=== PATIENT | male | born 1975 | race Caucasian/White ===

== ENCOUNTER 2019-03-11 05:53 | Emergency (ER) | payer OTHER ==
[~2019-03-11] VITALS: Ht 175.3 cm; Wt 74.8 kg
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
--- NOTE | 2019-03-11 06:04 | NUR ---
EMT AT BEDSIDE FOR WOUND CLEANING.
[2019-03-11] MEDS ORDERED: LIDOCAINE HCL/PF 1% 30 ML SDV ONE (06:16)
[2019-03-11] MEDS ORDERED: IBUPROFEN 600 MG TABLET PO ONE ×2 (06:21→06:30)
[2019-03-11] MEDS ORDERED: LIDOCAINE HCL/PF 1% 30 ML VIAL TP ONE (06:30)
[2019-03-11] MEDS ORDERED: CEPHALEXIN MONOHYDRATE 500 MG CAPSULE PO ONE (06:30)
--- NOTE | 2019-03-11 06:55 | NUR ---
Patient discharged to [employer] Officer in stable condition. OK to book. Written and verbal after care instructions given to officer and pt. Patient verbalizes understanding of instruction. Pt ambulatory with a steady gait
[2019-03-11 06:58] VITALS: BP 132/82
== END 2019-03-11 06:59 ==
LOC: ER 05:54
DX: S01.312A Laceration without foreign body of left ear, initial encounter (principal); I10 Essential (primary) hypertension; J45.909 Unspecified asthma, uncomplicated; Y08.89XA Assault by other specified means, initial encounter; Y93.89 Activity, other specified; Y92.89 Other specified places as the place of occurrence of the external cause; Y99.8 Other external cause status
CPT/HCPCS: 12051; 99284; A6402; J3490 ×2

== ENCOUNTER 2019-03-24 11:06 | Emergency (ER) | payer OTHER ==
[~2019-03-24] VITALS: Ht 175.3 cm; Wt 73.0 kg
--- NOTE | 2019-03-24 11:06 | NUR ---
BIB [facility] FROM HOME,WORSENING ASTHMA ATTACK, ALBUTEROL HHN GIVEN ENROUTE. TO ER BED 1, HOOKED TO MONITOR, CHANGED TO GOWN, PROVIDED W WARM BLANKET, AWAITING MD CRAWFORD.
--- NOTE | 2019-03-24 11:14 | NUR ---
DR NAIDU AT BEDSIDE
[2019-03-24] MEDS ORDERED: IPRATROPIUM NEB FS 0.5 MG/2.5 ML AMPUL.NEB NEB ONE (11:30)
[2019-03-24] MEDS ORDERED: ALBUTEROL FS 2.5 MG/3 ML VIAL.NEB NEB ONE (11:30)
[2019-03-24] MEDS ORDERED: predniSONE 20 MG TABLET PO ONE (11:30)
[2019-03-24] MEDS ORDERED: predniSONE 20 MG TABLET ONE (11:31)
[2019-03-24] MEDS ORDERED: ALBUTEROL FS 2.5 MG/3 ML VIAL.NEB ONE (11:36)
[2019-03-24] MEDS ORDERED: IPRATROPIUM NEB FS 0.5 MG/2.5 ML AMPUL.NEB ONE (11:36)
--- NOTE | 2019-03-24 11:38 | NUR ---
RT AT BEDSIDE, PT STARTED BREATHING TX
[2019-03-24 12:25] VITALS: BP 119/65
== END 2019-03-24 12:51 | disposition home or self-care (01) ==
LOC: ER 11:06
DX: J45.901 Unspecified asthma with (acute) exacerbation (principal); Z98.890 Other specified postprocedural states
CPT/HCPCS: 71045; 94640; 99283; J7512

== ENCOUNTER 2024-09-17 13:51 | Inpatient (IN) | payer OTHER ==
[~2024-09-17] VITALS: Ht 175.3 cm; Wt 75.3 kg
[2024-09-17 14:22] LABS: BASOPHILS % (AUTO) 0.5 % (0.0-2.0); EOSINOPHILS # (AUTO) 0.2 K/uL (0.0-0.7); EOSINOPHILS % (AUTO) 3.2 % (0.0-6.0); HEMATOCRIT 38 % (39-51); HEMOGLOBIN 13.3 g/dL (13.5-17.5); LYMPHOCYTES # (AUTO) 2.6 K/uL (0.8-4.8); LYMPHOCYTES % (AUTO) 39.9 % (20.0-44.0); MEAN CORPUSCULAR HEMOGLOBIN 31 PG (26.0-33.0); MEAN CORPUSCULAR HGB CONC 35 g/dl (31.0-36.0); MEAN CORPUSCULAR VOLUME 91 fL (80-96); MONOCYTES # (AUTO) 0.6 K/uL (0.1-1.30); MONOCYTES % (AUTO) 8.4 % (2.0-12.0); NEUTROPHILS # (AUTO) 3.2 K/uL (1.8-8.9); PLATELET COUNT (AUTO) 247 K/uL (150-450); RED BLOOD CELL COUNT(AUTO) 4.23 MIL/uL (4.5-6.0); RED CELL DISTRIBUTION WIDTH 12.9 % (11.5-15.0); WHITE BLOOD COUNT (AUTO) 6.6 K/uL (4.3-11.0)
[2024-09-17 14:41] LABS: CALCIUM, SERUM 8.5 mg/dL (8.5-10.1); CARBON DIOXIDE 23 mmol/L (21-32); CHLORIDE 110 mmol/L (98-107); GLUCOSE 89 mg/dL (74-106); SODIUM SERUM 142 mmol/L (136-145); UREA NITROGEN, BLOOD 25 mg/dL (7-18)
[2024-09-17 14:47] LABS: ALANINE AMINOTRANSFERASE 27 U/L (12-78); ALBUMIN 3.6 g/dL (3.4-5.0); ALCOHOL, BLOOD 75 mg/dL (0-10); ALKALINE PHOSPHATASE 54 U/L (46-116); ASPARTATE AMINOTRANSFERASE 20 U/L (15-37); BILIRUBIN,DIRECT 0.1 mg/dL (0.0-0.2); BILIRUBIN,TOTAL 0.5 mg/dL (0.2-1.0); TOTAL PROTEIN, SERUM 6.6 g/dL (6.4-8.2)
[2024-09-17 14:49] LABS: ACETAMINOPHEN <10 ug/ml (10-30); SALICYLATE 1.8 mg/dL (2.8-20.0)
[2024-09-17 14:49] LABS: ABG BASE EXCESS -3.9 mmol/L (-2.0-3.0); ABG OXYGEN SATURATION 95.3 % (94.0-98.0); ABG PH 7.369 (7.350-7.450); ABG PO2 85.8 mmHg (83.0-108.0); ABG TOTAL HEMOGLOBIN 13.6 G/dL (13.5-17.5); COHb 0.3 % (0.5-1.5); MetHb 0.3 % (0.0-1.5); O2Hb 94.7 % (94.0-97.0); SITE, ABG RIGHT RADIAL
[2024-09-17] MEDS ORDERED: FOMEPIZOLE IV ONE (15:00)
[2024-09-17] MEDS ORDERED: FOMEPIZOLE 1.5 G in IV D5W 100 ML IV ONE (15:00)
[2024-09-17] MEDS ORDERED: D5W IV ONE (15:00)
[2024-09-17] MEDS: D5W IV ONE (15:10)
[2024-09-17] MEDS: FOMEPIZOLE IV ONE (15:10)
[2024-09-17] MEDS ORDERED: ONDANSETRON HCL/PF 4 MG/2 ML VIAL IVP PRN (16:30)
[2024-09-17] MEDS ORDERED: ENOXAPARIN SODIUM 40 MG/0.4 ML DISP.SYRIN SQ SCH (16:30)
[2024-09-17 16:47] LABS: APPEARANCE,URINE CLEAR (CLEAR); BLOOD, URINE NEGATIVE Ery/uL (NEGATIVE); COLOR,URINE LIGHT YELLOW (YELLOW); PROTEIN,URINE NEGATIVE (NEGATIVE); UGLUCOSE NEGATIVE (NEGATIVE)
[2024-09-17 16:48] LABS: BILIRUBIN,URINE NEGATIVE (NEGATIVE); KETONES,URINE TRACE mg/dL (NEGATIVE); LEUKOCYTE ESTERASE ,URINE NEGATIVE (NEGATIVE); NITRITE, URINE NEGATIVE (NEGATIVE); UROBILINOGEN,URINE 0.2 EU/dL (0.2)
[2024-09-17 17:01] LABS: AMPHETAMINE, URINE POSITIVE (NEGATIVE); BARBITURATE, URINE NEGATIVE (NEGATIVE); BENZODIAZEPINE, URINE NEGATIVE (NEGATIVE); CANNABINOID, URINE NEGATIVE (NEGATIVE); COCCAINE, URINE NEGATIVE (NEGATIVE); OPIATE, URINE NEGATIVE (NEGATIVE); PHENCYCLIDINE SCREEN,URINE NEGATIVE (NEGATIVE)
[2024-09-17 17:09] LABS: ADD URINE CULTURE NO; BACTERIA,URINE Few /HPF (None Seen); RBC,URINE 0-2 /HPF (0-2); SQUAMOUS EPITHELIAL CELL,UR Few /HPF (None Seen); WBC,URINE 0-2 /HPF (0-3)
[2024-09-17] MEDS ORDERED: BECL10.6 INH (18:25)
[2024-09-17] MEDS ORDERED: ALBU18HF2 IH (18:25)
[2024-09-17] MEDS ORDERED: DIPH50CA37 PO (18:25)
[2024-09-17] MEDS ORDERED: RISP2TAB85 PO (18:25)
[2024-09-17] MEDS ORDERED: SERT100T12 PO (18:25)
[2024-09-17 20:04] LABS: APPEARANCE,URINE CLEAR (CLEAR); BILIRUBIN,URINE NEGATIVE (NEGATIVE); BLOOD, URINE NEGATIVE Ery/uL (NEGATIVE); COLOR,URINE YELLOW (YELLOW); KETONES,URINE TRACE mg/dL (NEGATIVE); LEUKOCYTE ESTERASE ,URINE NEGATIVE (NEGATIVE); NITRITE, URINE NEGATIVE (NEGATIVE); PROTEIN,URINE NEGATIVE (NEGATIVE); UGLUCOSE NEGATIVE (NEGATIVE); UROBILINOGEN,URINE 0.2 EU/dL (0.2)
[2024-09-17 20:11] LABS: ADD URINE CULTURE NO; BACTERIA,URINE Few /HPF (None Seen); RBC,URINE 0-2 /HPF (0-2); SQUAMOUS EPITHELIAL CELL,UR None Seen /HPF (None Seen); WBC,URINE 0-2 /HPF (0-3)
[2024-09-17] MEDS: IV NS 0.9% 1,000 ML IV PRN (20:16)
[2024-09-17] MEDS: ENOXAPARIN SODIUM 40 MG/0.4 ML DISP.SYRIN SQ SCH (20:29)
[2024-09-17 20:30] VITALS: BP 101/66; TEMP 97.8; O2SAT 97
[2024-09-17 20:40] LABS: EOSINOPHIL,URINE None Seen
[2024-09-17 21:00] VITALS: BP 104/71; O2SAT 97
[2024-09-17 22:00] VITALS: BP 107/68; O2SAT 98
[2024-09-17 23:00] VITALS: BP 96/70; O2SAT 95
[2024-09-18] VITALS (15 sets, daily range): BP systolic 89–128; BP diastolic 46–77; TEMP 97.8–98.4; O2SAT 95–99
[2024-09-18] MEDS: FOMEPIZOLE IV SCH (02:15)
[2024-09-18] MEDS: D5W IV SCH (02:15)
[2024-09-18 05:12] LABS: BASOPHILS # (AUTO) 0.1 K/uL (0.0-0.2); BASOPHILS % (AUTO) 1.3 % (0.0-2.0); EOSINOPHILS # (AUTO) 0.3 K/uL (0.0-0.7); EOSINOPHILS % (AUTO) 6.5 % (0.0-6.0); HEMATOCRIT 39 % (39-51); HEMOGLOBIN 13.5 g/dL (13.5-17.5); LYMPHOCYTES # (AUTO) 2.6 K/uL (0.8-4.8); LYMPHOCYTES % (AUTO) 49.1 % (20.0-44.0); MEAN CORPUSCULAR HEMOGLOBIN 31 PG (26.0-33.0); MEAN CORPUSCULAR HGB CONC 35 g/dl (31.0-36.0); MEAN CORPUSCULAR VOLUME 89 fL (80-96); MONOCYTES # (AUTO) 0.4 K/uL (0.1-1.30); MONOCYTES % (AUTO) 7.8 % (2.0-12.0); NEUTROPHILS # (AUTO) 1.9 K/uL (1.8-8.9); NEUTROPHILS % (AUTO) 35.3 % (43.0-81.0); PLATELET COUNT (AUTO) 225 K/uL (150-450); RED BLOOD CELL COUNT(AUTO) 4.32 MIL/uL (4.5-6.0); RED CELL DISTRIBUTION WIDTH 12.8 % (11.5-15.0); WHITE BLOOD COUNT (AUTO) 5.2 K/uL (4.3-11.0)
[2024-09-18 05:37] LABS: ALBUMIN 3.1 g/dL (3.4-5.0); BILIRUBIN,TOTAL 0.7 mg/dL (0.2-1.0); CALCIUM, SERUM 8.6 mg/dL (8.5-10.1); MAGNESIUM 2.2 mg/dL (1.8-2.4); PHOSPHORUS 3.3 mg/dL (2.5-4.9); POTASSIUM 4.5 mmol/L (3.5-5.1)
[2024-09-18] MEDS: risperiDONE 1 MG TABLET PO SCH (18:00)
[2024-09-19] VITALS (7 sets, daily range): BP systolic 101–128; BP diastolic 65–78; TEMP 97.7–98.6; O2SAT 97–98
[2024-09-19 02:31] LABS: CREATININE, URINE 58.2 MG/DL (30.0-125.0); URINE SODIUM, RANDOM 48 mmol/l (40-220)
[2024-09-19 02:48] LABS: URINE TOTAL PROTEIN < 11.9 mg/dL (0-11.9)
[2024-09-19 06:33] LABS: BASOPHILS # (AUTO) 0.1 K/uL (0.0-0.2); EOSINOPHILS # (AUTO) 0.4 K/uL (0.0-0.7); EOSINOPHILS % (AUTO) 5.3 % (0.0-6.0); HEMATOCRIT 38 % (39-51); HEMOGLOBIN 13.4 g/dL (13.5-17.5); LYMPHOCYTES # (AUTO) 2.2 K/uL (0.8-4.8); LYMPHOCYTES % (AUTO) 30.9 % (20.0-44.0); MEAN CORPUSCULAR HEMOGLOBIN 31 PG (26.0-33.0); MEAN CORPUSCULAR HGB CONC 35 g/dl (31.0-36.0); MEAN CORPUSCULAR VOLUME 89 fL (80-96); MONOCYTES # (AUTO) 0.5 K/uL (0.1-1.30); MONOCYTES % (AUTO) 7.1 % (2.0-12.0); NEUTROPHILS % (AUTO) 55.7 % (43.0-81.0); PLATELET COUNT (AUTO) 225 K/uL (150-450); RED BLOOD CELL COUNT(AUTO) 4.28 MIL/uL (4.5-6.0); RED CELL DISTRIBUTION WIDTH 12.8 % (11.5-15.0); WHITE BLOOD COUNT (AUTO) 7.2 K/uL (4.3-11.0)
[2024-09-19 07:01] LABS: BILIRUBIN,TOTAL 0.3 mg/dL (0.2-1.0); CALCIUM, SERUM 8.1 mg/dL (8.5-10.1); MAGNESIUM 2.1 mg/dL (1.8-2.4); PHOSPHORUS 3.1 mg/dL (2.5-4.9); POTASSIUM 3.7 mmol/L (3.5-5.1); TOTAL PROTEIN, SERUM 5.8 g/dL (6.4-8.2)
[2024-09-19] MEDS: ESCITALOPRAM OXALATE (10 MG) 10 MG TABLET PO SCH (08:26)
[2024-09-19] MEDS: ACETAMINOPHEN 325 MG TABLET PO PRN (15:17)
[2024-09-19] MEDS: MUPIROCIN OINT 2% 22 GM TUBE NS SCH (20:20)
[2024-09-19 22:18] LABS: ALBUMIN 3.2 g/dL (3.4-5.0); BILIRUBIN,TOTAL 0.4 mg/dL (0.2-1.0); CALCIUM, SERUM 8.4 mg/dL (8.5-10.1); POTASSIUM 4.1 mmol/L (3.5-5.1); TOTAL PROTEIN, SERUM 6.3 g/dL (6.4-8.2)
[2024-09-20] MEDS: FOMEPIZOLE IV SCH (02:07)
[2024-09-20] MEDS: D5W IV SCH (02:07)
[2024-09-20 20:00] VITALS: BP 110/69; TEMP 98.6; O2SAT 97
[2024-09-21 14:08] LABS: BASOPHILS % (AUTO) 0.5 % (0.0-2.0); EOSINOPHILS # (AUTO) 0.5 K/uL (0.0-0.7); EOSINOPHILS % (AUTO) 6.6 % (0.0-6.0); HEMATOCRIT 42 % (39-51); HEMOGLOBIN 14.6 g/dL (13.5-17.5); LYMPHOCYTES # (AUTO) 1.4 K/uL (0.8-4.8); LYMPHOCYTES % (AUTO) 18.6 % (20.0-44.0); MEAN CORPUSCULAR HEMOGLOBIN 31 PG (26.0-33.0); MEAN CORPUSCULAR HGB CONC 35 g/dl (31.0-36.0); MEAN CORPUSCULAR VOLUME 89 fL (80-96); MONOCYTES # (AUTO) 0.7 K/uL (0.1-1.30); MONOCYTES % (AUTO) 9.4 % (2.0-12.0); NEUTROPHILS % (AUTO) 64.9 % (43.0-81.0); PLATELET COUNT (AUTO) 229 K/uL (150-450); RED BLOOD CELL COUNT(AUTO) 4.68 MIL/uL (4.5-6.0); RED CELL DISTRIBUTION WIDTH 12.5 % (11.5-15.0); WHITE BLOOD COUNT (AUTO) 7.7 K/uL (4.3-11.0)
[2024-09-21 14:41] LABS: ALBUMIN 3.3 g/dL (3.4-5.0); BILIRUBIN,TOTAL 0.6 mg/dL (0.2-1.0); CALCIUM, SERUM 8.8 mg/dL (8.5-10.1); POTASSIUM 3.8 mmol/L (3.5-5.1)
[2024-09-22] MEDS ORDERED: ACET-868 PO (08:37)
[2024-09-22] MEDS ORDERED: ESCI5TAB PO (08:37)
[2024-09-22] MEDS ORDERED: RISP0.5T65 PO (08:37)
== END 2024-09-21 16:54 | DRG 817 ==
LOC: ER 14:17 → ICU 18:14 → TELE 09-18 11:53 → MED 09-19 12:38 → GPS 09-21 16:46
PROVIDERS: ADMIT Nurse Practitioner Acute Care
DX: T51.8X2A Toxic effect of other alcohols, intentional self-harm, initial encounter (principal); R45.851 Suicidal ideations; F29 Unspecified psychosis not due to a substance or known physiological condition; F33.1 Major depressive disorder, recurrent, moderate; D64.9 Anemia, unspecified; E86.9 Volume depletion, unspecified; Y92.89 Other specified places as the place of occurrence of the external cause; F20.9 Schizophrenia, unspecified; F41.1 Generalized anxiety disorder; J45.909 Unspecified asthma, uncomplicated; R45.850 Homicidal ideations; Z56.0 Unemployment, unspecified
CPT/HCPCS: 36415; 80048-TC; 80053-TC; 80076-TC; 81001; 82570-TC; 82693; 82803-TC; 83735-TC; 83935-TC; 84100-TC; 84300-TC; 85025-TC; 87081-TC; 98960; A4223; G0378; G0480; J1451; J1650; J7030; J7060

== ENCOUNTER 2024-09-21 17:04 | Inpatient (IN) | payer OTHER ==
[~2024-09-21] VITALS: Ht 175.3 cm; Wt 73.0 kg
[~2024-09-21 17:04] MED LIST: ALBU18HF2 IH; BECL10.6 INH; DIPH50CA37 PO; RISP2TAB85 PO; SERT100T12 PO
[2024-09-21] MEDS ORDERED: MAGNESIUM HYDROXIDE 30 ML UDC PO PRN (18:00)
[2024-09-21] MEDS ORDERED: TEMAZEPAM 7.5 MG CAPSULE PO PRN ×2 (18:00)
[2024-09-21] MEDS ORDERED: clonazePAM 0.5 MG TABLET PO PRN (18:00)
[2024-09-21] MEDS ORDERED: MAG HYDROX/AL HYDROX/SIMETH 30 ML UDC PO PRN (18:00)
[2024-09-21] MEDS: BLOOD SUGAR DIAGNOSTIC 1 EACH STRIP IN ONE (18:39)
[2024-09-21] MEDS: clonazePAM 0.5 MG TABLET PO PRN (18:42)
[2024-09-21] MEDS: ACETAMINOPHEN 325 MG TABLET PO PRN (18:43)
[2024-09-21] MEDS ORDERED: Medication Not On Formulary EA (Beclomethasone Dipropionate (Qvar Redihaler) 2 PUFF) INH SCH (19:00)
[2024-09-22 00:36] VITALS: BP 115/82; TEMP 98; O2SAT 98
[2024-09-22] MEDS: BUDESONIDE RESPULE INH 0.5 MG/2 ML AMPUL.NEB NEB SCH (07:05)
[2024-09-22 08:00] VITALS: BP 100/66; TEMP 98.7; O2SAT 97
[2024-09-22 08:05] LABS: ALBUMIN 3.3 g/dL (3.4-5.0); BILIRUBIN,TOTAL 0.7 mg/dL (0.2-1.0); CALCIUM, SERUM 9.1 mg/dL (8.5-10.1); CREATININE 0.9 mg/dL (0.6-1.3); POTASSIUM 3.9 mmol/L (3.5-5.1); TOTAL PROTEIN, SERUM 7.2 g/dL (6.4-8.2)
[2024-09-22 08:17] LABS: CHOLESTEROL 129 mg/dL (<200); HDL CHOLESTEROL 52 mg/dL (40-60); LDL 74 mg/dL (0-99); TRIGLYCERIDES 74 mg/dL (30-150)
[2024-09-22] MEDS ORDERED: ACET-868 PO (08:37)
[2024-09-22] MEDS ORDERED: ESCI5TAB PO (08:37)
[2024-09-22] MEDS ORDERED: RISP0.5T65 PO (08:37)
[2024-09-22 09:15] VITALS: O2SAT 98
[2024-09-22] MEDS: ALBUTEROL FS 2.5 MG/3 ML VIAL.NEB IH PRN (09:37)
[2024-09-22] MEDS ORDERED: ALBUTEROL FS 2.5 MG/3 ML VIAL.NEB NEB PRN (11:00)
[2024-09-22] MEDS: clonazePAM 1 MG TABLET PO STA (11:29)
[2024-09-22] MEDS: risperiDONE 1 MG TABLET PO SCH (14:37)
[2024-09-22 16:00] VITALS: BP 100/84; TEMP 98.7; O2SAT 96
[2024-09-22] MEDS: clonazePAM 1 MG TABLET PO PRN (19:52)
[2024-09-22 20:00] VITALS: BP 106/69; TEMP 98.4; O2SAT 99
[2024-09-23 08:00] VITALS: BP 100/61; TEMP 98.6; O2SAT 100
[2024-09-23] MEDS: ESCITALOPRAM OXALATE (10 MG) 10 MG TABLET PO SCH (08:09)
[2024-09-23 14:22] VITALS: O2SAT 94
[2024-09-23 14:37] VITALS: O2SAT 99
[2024-09-23 16:18] VITALS: BP_SYST 100; BP_SYST 113; BP_DIAS 61; BP_DIAS 72; TEMP 98.2; O2SAT 95
[2024-09-23 20:00] VITALS: BP 115/66; TEMP 98.4; O2SAT 95
[2024-09-23] MEDS: clonazePAM 1 MG TABLET PO PRN (23:39)
[2024-09-24 07:51] VITALS: O2SAT 95
[2024-09-24 07:59] VITALS: O2SAT 99
[2024-09-24 08:00] VITALS: BP 109/72; TEMP 98; O2SAT 96
[2024-09-24 16:00] VITALS: BP 120/76; TEMP 97.8; O2SAT 94
[2024-09-24 20:00] VITALS: BP 118/79; TEMP 97.7; O2SAT 100
[2024-09-24] MEDS: TEMAZEPAM 15 MG CAPSULE PO PRN (21:56)
[2024-09-25] MEDS: diphenhydrAMINE HCL 50 MG/ML VIAL IM ONE (00:43)
[2024-09-25] MEDS: LORAZEPAM INJ 2 MG/ML VIAL IM ONE (00:43)
[2024-09-25] MEDS: HALOPERIDOL LACTATE INJ 5 MG/ML VIAL IM ONE (00:43)
[2024-09-25 02:34] LABS: AMPHETAMINE, URINE NEGATIVE (NEGATIVE); BARBITURATE, URINE NEGATIVE (NEGATIVE); BENZODIAZEPINE, URINE NEGATIVE (NEGATIVE); CANNABINOID, URINE NEGATIVE (NEGATIVE); COCCAINE, URINE NEGATIVE (NEGATIVE); OPIATE, URINE NEGATIVE (NEGATIVE); PHENCYCLIDINE SCREEN,URINE NEGATIVE (NEGATIVE)
[2024-09-25 08:00] VITALS: BP 98/67; TEMP 97.9; O2SAT 98
[2024-09-25] MEDS: ESCITALOPRAM OXALATE (10 MG) 10 MG TABLET PO SCH (08:46)
[2024-09-25 16:00] VITALS: BP 122/73; TEMP 98; O2SAT 97
[2024-09-25 18:27] VITALS: O2SAT 96
[2024-09-25 18:40] VITALS: O2SAT 99
[2024-09-25 20:40] VITALS: BP 108/70; TEMP 98; O2SAT 98
[2024-09-25] MEDS: OLANZAPINE 10 MG VIAL IM ONE (20:49)
[2024-09-26 08:00] VITALS: BP 120/76; TEMP 97.6; O2SAT 98
[2024-09-26 08:36] VITALS: O2SAT 94
[2024-09-26 08:46] VITALS: O2SAT 98
[2024-09-26 16:05] VITALS: BP 121/76; TEMP 97.9; O2SAT 98
[2024-09-26 20:22] VITALS: BP 120/80; TEMP 98.1; O2SAT 98
[2024-09-27 08:00] VITALS: BP 122/86; TEMP 98.4; O2SAT 95
[2024-09-27 13:22] VITALS: O2SAT 95
[2024-09-27 13:30] VITALS: O2SAT 98
[2024-09-27 16:00] VITALS: BP 141/76; TEMP 98.2; O2SAT 95
== END 2024-09-27 17:30 | disposition home or self-care (01) | DRG 751 ==
LOC: GPS 17:04
PROVIDERS: ADMIT Psychiatry & Neurology Psychiatry; ATTEND Nurse Practitioner Acute Care
DX: F29 Unspecified psychosis not due to a substance or known physiological condition (principal); R45.851 Suicidal ideations; D64.9 Anemia, unspecified; Z20.822 Contact with and (suspected) exposure to COVID-19; F41.1 Generalized anxiety disorder; F32.9 Major depressive disorder, single episode, unspecified; F15.10 Other stimulant abuse, uncomplicated; F10.10 Alcohol abuse, uncomplicated; J45.909 Unspecified asthma, uncomplicated; E86.9 Volume depletion, unspecified; T51 Toxic effect of alcohol; Z79.899 Other long term (current) drug therapy
CPT/HCPCS: 36415; 80053-TC; 80061-TC; 82565-TC; 94799-TC; J1200; J1630; J2060; J3490